=== PATIENT | female | born 1955 | race Caucasian/White ===

== ENCOUNTER 2017-03-22 13:40 | Emergency (ER) | payer BC ==
[2017-03-22 13:49] VITALS: BP 143/87
--- NOTE | 2017-03-22 14:46 | UC ---
Complaint Female HPI - HPI Summary HPI Summary: ONE WEEK OF LOW BACK DISCOMFORT, YESTERDAY BLOOD AND DISCOMFORT WITH URINATION. NO FEVER. NO ABDOMINAL PAIN. - History Of Current Complaint Hx Obtained From: Patient Onset/Duration: Lasting Days Timing: Lasting Days Severity Initially: Mild Severity Currently: Mild Pain Intensity: 4 Pain Scale Used: 0-10 Numeric Character: Dull Aggravating Factor(s): Urination Associated Signs And Symptoms: Negative: Fever, Back Pain - Risk Factors Ectopic Risk Factor: Negative <Dinesh Baldwin - Last Filed: 03/22/17 14:41> <Alyson Proctor - Last Filed: 03/23/17 07:05> - History Of Current Complaint Chief Complaint: UCGU Stated Complaint: UTI Time Seen by Provider: 03/22/17 14:28 - Allergies/Home Medications Allergies/Adverse Reactions: Allergies Allergy/AdvReac Type Severity Reaction Status Date / Time Influenza Vaccines Allergy Severe Swelling Verified 04/11/15 16:14 Of Face,Lips,& Throat PMH/Surg Hx/FS Hx/Imm Hx Previously Healthy: Yes - Surgical History Surgical History: Yes Surgery Procedure, Year, and Place: , TUBAL LIGATION - Family History Known Family History: Negative: Renal Disease - Social History Occupation: Employed Full-time Lives: With Family Alcohol Use: Daily Substance Use Type: None Smoking Status (MU): Former Smoker <Dinesh Baldwin - Last Filed: 03/22/17 14:41> Review of Systems Constitutional: Negative Skin: Negative Eyes: Negative ENT: Negative Respiratory: Negative Cardiovascular: Negative Gastrointestinal: Negative Genitourinary: Dysuria, Frequency, Urgency Motor: Negative Neurovascular: Negative Musculoskeletal: Negative Neurological: Negative Psychological: Negative All Other Systems Reviewed And Are Negative: Yes <Dinesh Baldwin - Last Filed: 03/22/17 14:41> Physical Exam Triage Information Reviewed: Yes Appearance: Well-Appearing, No Pain Distress, Well-Nourished Vital Signs: Initial Vital Signs Temp 98 F 03/22/17 13:46 Pulse 96 03/22/17 13:46 Resp 16 03/22/17 13:46 BP 143/87 03/22/17 13:46 Pulse Ox 100 03/22/17 13:46 Vital Signs Reviewed: Yes Eye Exam: Normal ENT Exam: Normal ENT: Positive: Normal ENT inspection, Hearing grossly normal, TMs normal Dental Exam: Normal Neck exam: Normal Neck: Positive: Supple, Nontender, No Lymphadenopathy Respiratory Exam: Normal Respiratory: Positive: Chest non-tender, Lungs clear, Normal breath sounds, No respiratory distress Cardiovascular Exam: Normal Cardiovascular: Positive: RRR, No Murmur Abdominal Exam: Normal Abdomen Description: Positive: Nontender, No Organomegaly. Negative: CVA Tenderness (R), CVA Tenderness (L) Musculoskeletal Exam: Normal Neurological Exam: Normal Psychological Exam: Normal Skin Exam: Normal <Dinesh Baldwin - Last Filed: 03/22/17 14:41> Vital Signs: Initial Vital Signs Temp 98 F 03/22/17 13:46 Pulse 96 03/22/17 13:46 Resp 16 03/22/17 13:46 BP 143/87 03/22/17 13:46 Pulse Ox 100 03/22/17 13:46 <Alyson Proctor - Last Filed: 03/23/17 07:05> Complaint Female Dx - Differential Dx/Diagnosis Differential Diagnosis/HQI/PQRI: Urinary Tract Infection Provider Diagnoses: URINARY TRACT INFECTION <Dinesh Baldwin - Last Filed: 03/22/17 14:41> Discharge <Dinesh Baldwin - Last Filed: 03/22/17 14:41> <Alyson Proctor - Last Filed: 03/23/17 07:05> - Discharge Plan Condition: Stable Disposition: HOME Prescriptions: Phenazopyridine TAB* [Pyridium 100 mg TAB*] 100 mg PO TID PRN #15 tab PRN Reason: Pain Sulfamethox/Trimethoprim DS* [Bactrim DS 800/160 TAB*] 1 tab PO BID #10 tab Patient Education Materials: Urinary Tract Infection in Women (ED) Referrals: Ashley Hinojosa MD [Primary Care Provider] - Attestation Statement User Type: Provider - I was available for consult. This patient was seen by the [facility]. The patient was not presented to, seen by, or examined by me. -Sariah <Alyson Proctor - Last Filed: 03/23/17 07:05>
== END 2017-03-22 14:38 | disposition home or self-care (01) ==
LOC: UCEAST 13:40
DX: N39.0 Urinary tract infection, site not specified (principal); Z88.7 Allergy status to serum and vaccine; Z87.891 Personal history of nicotine dependence
CPT/HCPCS: 81003; 87086; 99212; G0463